=== PATIENT | female | born 1965 | race Caucasian/White ===

== ENCOUNTER 2017-04-23 00:23 | Emergency (ER) | payer OTHER ==
[~2017-04-23] VITALS: Ht 165.1 cm; Wt 113.6 kg
[~2017-04-23 00:23] MED LIST: BENA40TA54 PO; CARI350T PO; GABA300C16 PO; HYDR-762 PO; LISI40TA PO; LORA-444 PO; NAPR-688 PO; ONDA4TAB35 PO; ZOLP10TA PO
[2017-04-23 00:29] VITALS: Ht 165.1 cm; Wt 113.6 kg
[2017-04-23] MEDS ORDERED: SOD CHLORIDE 0.9% 1,000 ML IV STA (00:53)
[2017-04-23 01:29] LABS: BASOPHIL # 0.1 10^3/ul (0.0-0.1); BASOPHILS % 1.2 % (0.0-2.0); EOSINOPHILS # 0.1 10^3/ul (0.0-0.5); EOSINOPHILS % 1.4 % (0.0-7.0); HEMATOCRIT 31.2 % (37.0-47.0); HEMOGLOBIN 9.7 g/dl (12.0-16.0); LYMPHOCYTES # 1.6 10^3/ul (0.8-2.9); LYMPHOCYTES % 32.7 % (15.0-51.0); MEAN CORPUSCULAR HEMOGLOBIN 27.8 pg (29.0-33.0); MEAN CORPUSCULAR HGB CONC 31.1 g/dl (32.0-37.0); MEAN CORPUSCULAR VOLUME 89.4 fl (82.0-101.0); MEAN PLATELET VOLUME 11.2 fl (7.4-10.4); MONOCYTE # 0.3 10^3/ul (0.3-0.9); NEUTROPHILS % 59.5 % (39.0-77.0); PLATELET COUNT 268 10^3/UL (140-415); RED BLOOD COUNT 3.49 10^6/ul (4.20-5.40); RED CELL DISTRIBUTION WIDTH 14.6 % (11.5-14.5)
[2017-04-23 01:34] LABS: ADD UMIC NO; UR ASCORBIC ACID NEGATIVE (NEGATIVE); UR BILIRUBIN (Dip) NEGATIVE (NEGATIVE); UR BLOOD (Dip) NEGATIVE (NEGATIVE); UR CLARITY CLEAR (CLEAR); UR COLOR YELLOW (YELLOW); UR GLUCOSE (Dip) NEGATIVE (NEGATIVE); UR KETONES (Dip) NEGATIVE (NEGATIVE); UR LEUKOCYTE ESTERASE (Dip) NEGATIVE Leu/ul (NEGATIVE); UR NITRITE (Dip) NEGATIVE (NEGATIVE); UR SPECIFIC GRAVITY (Dip) 1.025 (1.003-1.030); UR TOTAL PROTEIN (Dip) NEGATIVE (NEGATIVE); UR UROBILINOGEN (Dip) NEGATIVE (NEGATIVE)
[2017-04-23 01:50] LABS: ALANINE AMINOTRANSFERASE 54 IU/L (13-69); ALBUMIN/GLOBULIN RATIO 0.96; ALKALINE PHOSPHATASE 54 IU/L (42-121); ANION GAP 8 (8-16); ASPARTATE AMINO TRANSFERASE 16 IU/L (15-46); BLOOD UREA NITROGEN 12 mg/dl (7-20); CALCIUM 7.7 mg/dl (8.4-10.2); CARBON DIOXIDE 25 mmol/L (21-31); CHLORIDE 114 mmol/L (97-110); GLUCOSE 93 mg/dl (70-220); POTASSIUM 3.3 mmol/L (3.5-5.1); SODIUM 144 mmol/L (135-144); TOTAL PROTEIN 6.1 g/dl (6.1-8.1)
[2017-04-23 01:54] LABS: ETHANOL < 10.0 mg/dl
[2017-04-23 02:25] LABS: BARBITURATES Negative (NEGATIVE); BENZODIAZEPINES Negative (NEGATIVE); CANNABINOIDS Negative (NEGATIVE); COCAINE Negative (NEGATIVE); OPIATES Positive (NEGATIVE)
[2017-04-23 02:25] LABS: ACETAMINOPHEN < 10.0 ug/ml (10.0-30.0); SALICYLATE < 1.0 mg/dl (5.0-30.0)
[2017-04-23 03:45] VITALS: BP 129/74; RESP 16; TEMP 97.9
--- NOTE | 2017-04-23 03:52 | PSY ---
Date/Time of Note Date/Time of Note DATE: 04/23/17 TIME: 03:52 Psychiatric Subjective Eval Consent Pt consented to telemedicine: Yes Subjective Evaluation Patient location: emergency Chief Complaint: BIBA RA39,SUSPECTED OD - PRESCRIPTION MEDS Medical history Problems Medical Problems: (1) Abdominal pain Status: Acute (2) Ankle pain, left Status: Acute (3) Back pain Status: Acute Allergies: Coded Allergies: No Known Allergy (Unverified , 04/23/17) Psychiatric Objective Eval Mental Status Examination: Laboratory Results Laboratory Tests Test 04/23/17 00:50 04/23/17 01:00 White Blood Count 5.010^3/ul Red Blood Count 3.4910^6/ul Hemoglobin 9.7g/dl Hematocrit 31.2% Mean Corpuscular Volume 89.4fl Mean Corpuscular Hemoglobin 27.8pg Mean Corpuscular Hemoglobin Concent 31.1g/dl Red Cell Distribution Width 14.6% Platelet Count 66617^3/UL Mean Platelet Volume 11.2fl Neutrophils % 59.5% Lymphocytes % 32.7% Monocytes % 5.0% Eosinophils % 1.4% Basophils % 1.2% Nucleated Red Blood Cells % 0.0/100WBC Neutrophils # 3.010^3/ul Lymphocytes # 1.610^3/ul Monocytes # 0.310^3/ul Eosinophils # 0.110^3/ul Basophils # 0.110^3/ul Nucleated Red Blood Cells # 0.010^3/ul Sodium Level 144mmol/L Potassium Level 3.3mmol/L Chloride Level 114mmol/L Carbon Dioxide Level 25mmol/L Anion Gap 8 Blood Urea Nitrogen 12mg/dl Creatinine 0.60mg/dl Glucose Level 93mg/dl Calcium Level 7.7mg/dl Total Bilirubin 0.0mg/dl Direct Bilirubin 0.00mg/dl Indirect Bilirubin 0.0mg/dl Aspartate Amino Transf (AST/SGOT) 16IU/L Alanine Aminotransferase (ALT/SGPT) 54IU/L Alkaline Phosphatase 54IU/L Total Protein 6.1g/dl Albumin 3.0g/dl Globulin 3.10g/dl Albumin/Globulin Ratio 0.96 Salicylates Level < 1.0mg/dl Acetaminophen Level < 10.0ug/ml Ethyl Alcohol Level < 10.0mg/dl Urine Color YELLOW Urine Clarity CLEAR Urine pH 6.0 Urine Specific [place] 1.025 Urine Ketones NEGATIVEmg/dL Urine Nitrite NEGATIVEmg/dL Urine Bilirubin NEGATIVEmg/dL Urine Urobilinogen NEGATIVEmg/dL Urine Leukocyte Esterase NEGATIVELeu/ul Urine Hemoglobin NEGATIVEmg/dL Urine Glucose NEGATIVEmg/dL Urine Total Protein NEGATIVEmg/dl Urine Opiates Screen Positive Urine Barbiturates Negative Urine Amphetamines Screen Negative Urine Benzodiazepines Screen Negative Urine Cocaine Screen Negative Urine Cannabinoids Negative Assessment Additional comments: IDENTIFYING INFORMATION: 51 year old [place] Female patient who is currently located at the hospital and for whom psychiatric consultation was requested. SOURCES OF INFORMATION: The patient who appears to be reliable and the medical records; the nursing staff. Daughter who appears to be reliable. CHIEF COMPLAINT: "we have war at [place]". HISTORY OF PRESENT ILLNESS: The patient was interviewed via telemedicine in the presence of and under the supervision of nursing staff of the hospital. The consent to conducting this interview via telemedicine was obtained by the nursing staff at the hospital. JOSÉ Fagan reports that the patient with history of depression presents after taking an OD of pain medications. Was somewhat lethargic on exam. Is not on a hold. According to the note by the nurse, the patient's daughter reported the patient has a history of taking too many of her pills to get high. Daughter reports that the pt took an excessive amount of pain medication to sleep. She is not sure how many she took. She reports that the patient has taken a couple of pills in the past in a similar fashion, not recognizing that this is not safe to do. Daughter reports that the pt has been somewhat depressed, has had anhedonia, insomnia, fatigue, and has been anxious. The patient has not made any comments regarding suicide and is future-oriented, planning for the future. Daughter denies the pt having AH, VH, delusions. Daughter denies the pt using alcohol, or using drugs, having a h/o psychiatric hospitalizations, contacts. Has taken antidepressants in the past prescribed by her PCP. The patient reports that she took 5-10 tablets to sleep including soma, ambien, ativan, norco. She reports that she was not trying to hurt herself but rather to go to sleep. She reports that her was at home also when that happened. The patient reports that she has been somewhat depressed,And has not been sleeping well. She reports that her appetite has been okay. She denies being hopeless, helpless, and would like to go home back to her family. Denies having auditory hallucinations, visual hallucinations, delusions, Suicidal ideation. PAST MEDICAL HISTORY: anxiety, chronic back pain. CURRENT MEDICATIONS: soma, ambien 10 mg po qhs, ativan 2 mg po bid, vicodin, lisinopril, neurontin, metoprolol, zofran. ALLERGIES TO MEDICATIONS: NKDA. SOCIAL HISTORY: [place] of [place] descent, moved [place] the [place] years ago, lives with her , and son, 2 children; did not graduate from high school; not employed; no access to firearms. LABORATORY TESTS: UDS positive for opiates, alcohol was not detected, CMP with potassium of 3.3, chloride 114, calcium 7.7, albumin 3.0, CBC with hemoglobin of 9.7, hematocrit 31.2, MCH 27.8. FAMILY HISTORY: Noncontributory for major depressive disorder, bipolar disorder , schizophrenia. REVIEW OF SYSTEMS: Constitutional (e.g., fever, weight loss): negative; Eyes, Ears, Nose, Mouth, Throat: negative; Cardiovascular: negative; Respiratory: negative; Gastrointestinal: negative; Genitourinary: negative; Musculoskeletal: negative; Integumentary (skin and/or breast): negative; Neurological: negative; Psychiatric: as per HPI; Endocrine: negative; Hematologic/Lymphatic: negative; Allergic/Immunologic: negative. MENTAL STATUS EXAMINATION: General Appearance and Behavior: somewhat anxious, cooperative with the interview, pleasant with the current interviewer, makes good eye contact, fairly groomed, no abnormal movements noted. Speech: Regular rate, regular rhythm, normal latency, normal volume, normal amount. Flow of thought: sequential, logical, goal-directed. Content of thought: no auditory hallucinations, no visual hallucinations, no delusions, no suicidal ideation; the patient is future-oriented, no homicidal ideation. Mood: "depressed". Affect: somewhat dysthymic, reactive, full range. Attention: normal based on the interview. Insight: fair. Judgment: poor. Memory: normal based on the interview. Sensorium: alert and oriented to person, place and date. ASSESSMENT: The patient's presentation and history are consistent with the diagnosis of major depressive disorder. It appears that the patient took a somewhat excessive amount of medication, namely 5-10 tablets, for insomnia-anxiety. There is no indication of the patient was trying to commit suicide. Based on all collateral information it appears that the patient is future-oriented, actively planning for her future. No evidence of psychosis, gonsalo, hypomania on exam. Appears that the patient has taken an excessive amount of opiates in the past. There is no clear indication of the patient is abusing opioids, but does take them in a potentially dangerous manner at times. She was educated about the risks of not taking pain medications as prescribed. Drift I: major depressive disorder, rule out opiate use disorder. Drift II: Deferred. Drift III: see PMH. Drift IV: social stressors. Drift V: GAF: 50. PLAN: - Medication management: Would start Lexapro 10 mg by mouth daily for depression. Risks, benefits, alternatives discussed in detail, and the patient provided informed consent to proceed with this plan. Would D/C Ambien to minimize polypharmacy. - Labs: please check TSH, the patient could have this test performed in the outpatient setting. - Psychotherapy: Provided supportive psychotherapy and psychoeducation. - Disposition: Discussed about the possibility of implementing medication changes, namely addressing polypharmacy and starting an antidepressant in the inpatient setting , however the patient reports that she would rather go home because she has many things that she needs to do. The patient is appropriate for the outpatient level of care at this time from a psychiatric perspective. The patient is not an imminent danger to self or others. The patient is motivated for outpatient treatment. The patient agrees to be compliant with outpatient follow-up appointments and pharmacotherapy as indicated. Would recommend that the patient follows up with a psychiatrist. Resources for outpatient follow-up will be provided by the hospital staff. The patient's risk for completed suicide is moderate in comparison to the general population. Risk factors include age, race, major depressive disorder, chronic medical problems, possibility of a substance use disorder. Protective factors include gender, absence of schizophrenia, bipolar disorder, anxiety disorder, personality disorder, no access to firearms, no history of past suicide attempts, access to care, supportive family. The patient's risk for completed suicide cannot be modified more effectively with inpatient admission at this time. The patient is not an imminent danger to self or others at this time and does not meet the legal criteria for involuntary admission. Risks, benefits, alternatives were discussed and the patient provided informed consent to proceed with the above plan. The patient's family as well as the patient are in agreement with the above plan. The patient's daughter also feels comfortable with the patient being discharged home. Discussed about the above plan with Dr. Manning. BERNADETTE HUNTER MD Apr 23, 2017 03:52
[2017-04-23] MEDS ORDERED: ESCI10TA PO (03:57)
--- NOTE | 2017-04-23 04:23 | ERD ---
ER Documentation Chief Complaint Chief Complaint DAIANA RA39,SUSPECTED OD - PRESCRIPTION MEDS HPI This is a 51-year-old female brought in by rescue treatment was suspected overdose. She took extra pain meds because she "wanted to get to sleep ". Denies suicidal homicidal ideation. ROS All systems reviewed and are negative except as per history of present illness. Medications Home Meds Active Scripts Escitalopram Oxalate* (Lexapro*) 10 Mg Tablet, 10 MG PO DAILY, #30 TAB Prov:ALANNA GOMEZ 04/23/17 Ondansetron Hcl* (Zofran* ODT) 4 mg -ODT Tab.disper, 4 MG PO Q4H Y for NAUSEA AND OR VOMITING, #10 TAB Prov:NANCY SOLER DO 06/14/15 Naproxen* (Naproxen*) 500 Mg Tablet, 500 MG PO BID Y for PAIN, #20 TAB Prov:NANCY SOLER DO 06/14/15 Hydrocodone Bit-Acetaminophen* ([place]*) 10-325 Mg Tablet, 1 TAB PO Q6 Y for PAIN , #20 TAB Prov:DHARMESH LYNCH MD 01/01/15 Reported Medications Gabapentin* (Gabapentin*) 300 Mg Capsule, 300 MG PO TID, CAP 06/14/15 Zolpidem Tartrate* (Ambien*) 10 Mg Tablet, 10 MG PO QHS Y for SLEEP 09/20/13 Lisinopril* (Prinivil*) 40 Mg Tablet, 40 MG PO DAILY 02/12/13 Lorazepam* (Ativan*) 2 Mg Tablet, 2 MG PO DAILY Y for AGITATION/ANXIETY 02/12/13 Carisoprodol* (Soma*) 350 Mg Tablet, 350 MG PO DAILY 02/12/13 Discontinued Reported Medications Benazepril Hcl* (Lotensin*) 40 Mg Tablet, 40 MG PO BID 09/20/13 Allergies Allergies: Coded Allergies: No Known Allergy (Unverified , 04/23/17) PMhx/Soc History of Surgery: No Anesthesia Reaction: No Hx Neurological Disorder: No Hx Respiratory Disorders: No Hx Cardiac Disorders: Yes (hypertension, high cholesterol) Hx Psychiatric Problems: Yes (anxiety) Hx Miscellaneous Medical Probl: Yes (back pain, kidney stones, depression) Hx Alcohol Use: No Hx Substance Use: No Hx Tobacco Use: No Smoking Status: Never smoker Physical Exam Vitals Vital Signs Date Time Temp Pulse Resp B/P Pulse Ox O2 Delivery O2 Flow Rate FiO2 04/23/17 03:45 97.9 16 129/74 98 04/23/17 00:29 97.6 96 18 119/80 96 Physical Exam Const: [] Head: Atraumatic Eyes: Normal Conjunctiva ENT: Normal External Ears, Nose and Mouth. Neck: Full range of motion..~ No meningismus. Resp: Clear to auscultation bilaterally Cardio: Regular rate and rhythm, no murmurs Abd: Soft, non tender, non distended. Normal bowel sounds Skin: No petechiae or rashes Back: No midline or flank tenderness Ext: No cyanosis, or edema Neur: Awake and alert Psych: Normal Mood and Affect Result Diagram: 04/23/174904/23/1749 Results 24 hrs Laboratory Tests Test 04/23/17 00:50 04/23/17 01:00 White Blood Count 5.010^3/ul Red Blood Count 3.4910^6/ul Hemoglobin 9.7g/dl Hematocrit 31.2% Mean Corpuscular Volume 89.4fl Mean Corpuscular Hemoglobin 27.8pg Mean Corpuscular Hemoglobin Concent 31.1g/dl Red Cell Distribution Width 14.6% Platelet Count 31987^3/UL Mean Platelet Volume 11.2fl Neutrophils % 59.5% Lymphocytes % 32.7% Monocytes % 5.0% Eosinophils % 1.4% Basophils % 1.2% Nucleated Red Blood Cells % 0.0/100WBC Neutrophils # 3.010^3/ul Lymphocytes # 1.610^3/ul Monocytes # 0.310^3/ul Eosinophils # 0.110^3/ul Basophils # 0.110^3/ul Nucleated Red Blood Cells # 0.010^3/ul Sodium Level 144mmol/L Potassium Level 3.3mmol/L Chloride Level 114mmol/L Carbon Dioxide Level 25mmol/L Anion Gap 8 Blood Urea Nitrogen 12mg/dl Creatinine 0.60mg/dl Glucose Level 93mg/dl Calcium Level 7.7mg/dl Total Bilirubin 0.0mg/dl Direct Bilirubin 0.00mg/dl Indirect Bilirubin 0.0mg/dl Aspartate Amino Transf (AST/SGOT) 16IU/L Alanine Aminotransferase (ALT/SGPT) 54IU/L Alkaline Phosphatase 54IU/L Total Protein 6.1g/dl Albumin 3.0g/dl Globulin 3.10g/dl Albumin/Globulin Ratio 0.96 Salicylates Level < 1.0mg/dl Acetaminophen Level < 10.0ug/ml Ethyl Alcohol Level < 10.0mg/dl Urine Color YELLOW Urine Clarity CLEAR Urine pH 6.0 Urine Specific [place] 1.025 Urine Ketones NEGATIVEmg/dL Urine Nitrite NEGATIVEmg/dL Urine Bilirubin NEGATIVEmg/dL Urine Urobilinogen NEGATIVEmg/dL Urine Leukocyte Esterase NEGATIVELeu/ul Urine Hemoglobin NEGATIVEmg/dL Urine Glucose NEGATIVEmg/dL Urine Total Protein NEGATIVEmg/dl Urine Opiates Screen Positive Urine Barbiturates Negative Urine Amphetamines Screen Negative Urine Benzodiazepines Screen Negative Urine Cocaine Screen Negative Urine Cannabinoids Negative Current Medications Medications (Trade) Dose Ordered Sig/Radha Route PRN Reason Start Time Stop Time Status Last Admin Dose Admin Sodium Chloride (NS) 1,000 ml @ 1,000 mls/hr Q1H STAT IV 04/23/17 00:53 04/23/17 01:52 DC 04/23/17 01:16 Procedures/MDM Patient's behavioral symptoms have stabilized while in the department. Patient is medically cleared and appropriate for psychiatric evaluation and work up. No e/o neurologic, toxic, infectious, or metabolic cause. Vision evaluated and deemed to be stable for outpatient management which I agree with. Started on Lexapro 10 mg p.o. daily per psychiatry recommendation Departure Diagnosis: Primary Impression: Acute drug overdose Encounter type: initial encounter Injury intent: accidental or unintentional Qualified Code: T50.901A - Acute drug overdose, accidental or unintentional, initial encounter Condition: Stable Patient Instructions: ALANNA Figueroa Apr 23, 2017 04:23
== END 2017-04-23 04:44 | disposition home or self-care (01) ==
LOC: E/R 00:23
DX: T50.901A Poisoning by unspecified drugs, medicaments and biological substances, accidental (unintentional), initial encounter (principal); R40.2352 Coma scale, best motor response, localizes pain, at arrival to emergency department; I10 Essential (primary) hypertension; R40.2222 Coma scale, best verbal response, incomprehensible words, at arrival to emergency department; R40.2142 Coma scale, eyes open, spontaneous, at arrival to emergency department
CPT/HCPCS: 36415; 80053; 80306; 80307; 81003; 85025; 93005; J7030; Z7502